=== PATIENT | male | born 1935 | race Caucasian/White ===

== ENCOUNTER 2018-05-02 08:20 | Day surgery (SDC) | payer OTHER, MEDICARE ==
[2018-05-02] MEDS ORDERED: LR 1,000 ML IV ONE (08:29)
--- NOTE | 2018-05-02 09:04 | CPEKG ---
Heart Rate: 63 RR Interval: 952 P-R Interval: 128 QRSD Interval: 154 QT Interval: 460 QTC Interval: 471 P [place]: 47 QRS [place]: 59 T Wave [place]: -41 EKG Severity - ABNORMAL ECG - EKG Impression: SINUS RHYTHM EKG Impression: RIGHT BUNDLE BRANCH BLOCK EKG Impression: ATRIAL PREMATURE COMPLEX Electronically Signed By: Vladimir Rider 02-May-2018 10:51:53
[2018-05-02] MEDS ORDERED: NALOXONE HCL 0.4 MG/ML INJ IVP PRN (09:49)
[2018-05-02] MEDS ORDERED: ACETAMINOPHEN 500 MG TAB PO PRN (09:49)
[2018-05-02] MEDS ORDERED: ONDANSETRON 4 MG/2 ML VIAL IVP PRN (09:49)
[2018-05-02] MEDS ORDERED: PROMETHAZINE HCL 25 MG/ML INJ IVP PRN (09:49)
[2018-05-02] MEDS ORDERED: LR 500 ML IV PRN (09:49)
--- NOTE | 2018-05-02 09:49 | PDANEPAE ---
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 balance issues - Cancer History Hx Cancer: Yes Cancer History Comment: skin - Congenital Disorder History Hx Congenital Disorders: No - GI History Hx Gastrointestinal Disorders: Yes Gastrointestinal History Comment: reflux,gerd,constipation - Other Health History Other Health History: stuffy nose. red areas after bumping. bilat catract sx. dental implants. anemia easily bruised. severe osteoporosis - Chronic Pain History Chronic Pain: Yes (back pain) - Surgical History Prior Surgeries: ASTHMA HTN APPY TONSILECTOMY. brain shunt for hydrocephalus. kyphoplasty x 3. wrist surgery ANE Review of Systems Review of Systems: - Exercise capacity METS (RN): 1 METS ANE Patient History - Allergies Allergies/Adverse Reactions: hydrocodone Allergy (Verified 05/02/18 08:32) Other-Enter Comments - Home Medications Home medications: home medication list seen and reviewed Home Medications: Albuterol [Proventil Neb] 06/21/15 [Last Taken 05/02/18] Aspirin EC [Aspirin EC 81 mg (OTC)] 06/21/15 [Last Taken 05/02/18] Esomeprazole Mag Trihydrate [Nexium] 06/21/15 [Last Taken 05/02/18] Fluticasone/Salmeter 250/50Mcg [Advair 250/50 (RX)] 06/21/15 [Last Taken ] Aricept 04/27/18 [Last Taken 05/02/18] Aspirin 81mg (*) 04/27/18 [Last Taken 05/02/18] Calcium 04/27/18 [Last Taken 05/02/18] Cholecalciferol (Vitamin D3) 04/27/18 [Last Taken 05/02/18] Duloxetine HCl 04/27/18 [Last Taken 05/02/18] Finasteride 04/27/18 [Last Taken 05/02/18] Furosemide 04/27/18 [Last Taken 3 Days Ago ~04/29/18] Iron 100-Vitamin C Tablet 04/27/18 [Last Taken 5 Days Ago ~04/27/18] Losartan Potassium 04/27/18 [Last Taken 05/02/18] Multivitamins 04/27/18 [Last Taken 05/02/18] Oxybutynin 04/27/18 [Last Taken 05/02/18] Potassium Cl 04/27/18 [Last Taken 04/28/18] Prolia 04/27/18 [Last Taken 05/02/18] Tamsulosin HCl 04/27/18 [Last Taken 05/02/18] - NPO status NPO Status: no food or drink >8 hours NPO Since - Liquids (Date): 05/02/18 NPO Since - Liquids (Time): 08:00 NPO Since - Solids (Date): 05/01/18 NPO Since - Solids (Time): 09:45 - Anes Hx Anes Hx: no prior problems - Smoking Hx Smoking Status: Former smoker - Family Anes Hx Family Hx Anesthesia Complications: NONE ANE Labs/Vital Signs - Vital Signs Blood Pressure: 157/93 Heart Rate: 55 Respiratory Rate: 16 O2 Sat (%): 93 Height: 170.18 cm Weight: 86.183 kg ANE Physical Exam - Airway Neck exam: FROM Mouth exam: normal dental/mouth exam - Pulmonary Pulmonary: no respiratory distress, no rales or rhonchi, clear to auscultation - Cardiovascular Cardiovascular: regular rate and rhythym, no murmur, rub, or gallop - ASA Status ASA Status: II ANE Anesthesia Plan Anesthesia Plan: GA with mask
[2018-05-02] MEDS ORDERED: PROPOFOL 200 MG/20 ML VIAL ONE ×2 (09:51→10:09)
--- NOTE | 2018-05-02 10:36 | GIREPORT ---
[facility] - Endoscopy Department Patient Name: Ariel Ignacio Procedure Date: 05/02/2018 9:44 AM Patient Type: Outpatient Attending MD/ ER Physician: Terrell Cartwright MD Procedure: Upper GI endoscopy Indications: Suspected upper gastrointestinal bleeding in patient with unexplained i galindo deficiency anemia Providers: Terrell Cartwright MD Medicines: General Anesthesia Complications: No immediate complications. Description of Procedure: After obtaining informed consent, the endoscope was passed under direct vision. Throughout the procedure, the patient's blood pressure, pulse, and oxygen saturations were monitored continuously. The Endoscope was intro duced through the mouth, and advanced to the third part of duodenum. The uppe r GI endoscopy was accomplished without difficulty. The patient tolerated th e procedure well. Findings: The examined esophagus was normal. A single 30 mm pedunculated polyp with no bleeding and no stigmata of r ecent bleeding was found in the gastric body. The polyp was removed with a co ld snare. Resection and retrieval were complete using a snare. Two hemosta tic clips were successfully placed. The gastric antrum was normal. Biopsies were taken with a cold forceps for histology. A large hiatal hernia was present. The examined duodenum was normal. Biopsies for histology were taken wit h a cold forceps for evaluation of celiac disease. Estimated Blood Loss: Estimated blood loss: none. Estimated blood loss: none. Post Op Diagnosis: - Normal esophagus. - A single large gastric polyp. Resected and retrieved. Clips were plac ed to assure hemostasis. - Normal antrum. Biopsied to rule out H. pylori. - Large hiatal hernia. - Normal examined duodenum. Biopsied to rule out celiac disease. Recommendation: - Perform a colonoscopy today. - Await pathology results. Attending Participation: I personally performed the entire procedure. Terrell Cartwright MD Terrell Cartwright MD 05/02/2018 10:36:22 AM This report has been signed electronicallyTerrell Cartwright MD Number of Addenda: 0 Note Initiated On: 05/02/2018 9:44 AM [email or web address]}
--- NOTE | 2018-05-02 10:40 | GIREPORT ---
[facility] Surgical Services - Endoscopy Department Patient Name: Ariel Ignacio Procedure Date: 05/02/2018 10:18 AM Patient Type: Outpatient Attending / ER Physician: Terrell Cartwright MD Procedure: Colonoscopy Indications: Unexplained iron deficiency anemia Providers: Terrell Cartwright MD Medicines: General Anesthesia Complications: No immediate complications. Description of Procedure: After obtaining informed consent, the scope was passed under direct vis ion. Throughout the procedure, the patient's blood pressure, pulse, and oxyg en saturations were monitored continuously. The Colonoscope was introduced through the anus and advanced to the sigmoid colon. The colonoscopy was technically difficult and complex due to inadequate bowel prep. Findings: A large amount of stool was found in the rectum and in the sigmoid colo n, precluding visualization. Estimated Blood Loss: Estimated blood loss: none. Post Op Diagnosis: - Stool in the rectum and in the sigmoid colon. - No specimens collected. Recommendation: - Discharge patient to home (with escort). - Clear liquid diet today. - Repeat bowel prep today. - Repeat colonoscopy tomorrow because the bowel preparation was poor. Attending Participation: I personally performed the entire procedure. Terrell Cartwright MD Terrell Cartwright MD 05/02/2018 10:39:27 AM This report has been signed [email or web address] Cartwright MD Number of Addenda: 0 Note Initiated On: 05/02/2018 10:18 AM Total Procedure Duration Time 0 hours 2 minutes 41 seconds [email or web address]}
--- NOTE | 2018-05-02 10:46 | PDGENHP ---
History and Physical - Chief Complaint JERAD - History of Present Illness JERAD. History Information - Allergies/Home Medication List Allergies/Adverse Reactions: hydrocodone Allergy (Verified 05/02/18 08:32) Other-Enter Comments Home Medications: Albuterol [Proventil Neb] 06/21/15 [Last Taken 05/02/18] Aspirin EC [Aspirin EC 81 mg (OTC)] 06/21/15 [Last Taken 05/02/18] Esomeprazole Mag Trihydrate [Nexium] 06/21/15 [Last Taken 05/02/18] Fluticasone/Salmeter 250/50Mcg [Advair 250/50 (RX)] 06/21/15 [Last Taken ] Aricept 04/27/18 [Last Taken 05/02/18] Aspirin 81mg (*) 04/27/18 [Last Taken 05/02/18] Calcium 04/27/18 [Last Taken 05/02/18] Cholecalciferol (Vitamin D3) 04/27/18 [Last Taken 05/02/18] Duloxetine HCl 04/27/18 [Last Taken 05/02/18] Finasteride 04/27/18 [Last Taken 05/02/18] Furosemide 04/27/18 [Last Taken 3 Days Ago ~04/29/18] Iron 100-Vitamin C Tablet 04/27/18 [Last Taken 5 Days Ago ~04/27/18] Losartan Potassium 04/27/18 [Last Taken 05/02/18] Multivitamins 04/27/18 [Last Taken 05/02/18] Oxybutynin 04/27/18 [Last Taken 05/02/18] Potassium Cl 04/27/18 [Last Taken 04/28/18] Prolia 04/27/18 [Last Taken 05/02/18] Tamsulosin HCl 04/27/18 [Last Taken 05/02/18] I have personally reviewed and updated: family history (-GI Ca or PUD), medical history, social history (_Tobacco or ETOH), surgical history (None) - Past Medical History COPD - Social History Smoking Status: Former smoker Review of Systems Review of Systems: ROS: 10pt was reviewed & negative except for what was stated in HPI & below Physical Exam Physical Exam: Temp Pulse Resp BP Pulse Ox 36.5 C 55 L 16 157/93 H 93 05/02/18 09:01 05/02/18 09:48 05/02/18 09:48 05/02/18 09:48 05/02/18 09:48 Constitutional: no apparent distress Eyes: PERRL Cardiovascular: regular rate and rhythym, no murmur, rub, or gallop Respiratory: no respiratory distress, no rales or rhonchi Gastrointestinal: normoactive bowel sounds, soft, non-tender abdomen, no palpable masses Skin: warm, normal color Neurologic: AAOx3 Assessment & Plan Assessment: JERAD COPD Plan: EGD/Colonoscopy
--- NOTE | 2018-05-02 10:58 | POSTANESTH ---
Post Anesthetic Evaluation Cardiovascular Status: Normal, Stable, Similar to Pre-Op Cond Respiratory Status: Normal, Stable, Similar to Pre-op Cond. Level of Consciousness/Mental Status: Can Participate in Eval, Moderately Sleepy Pain Control: Adequate, Prn Tx Ordered Nausea/Vomiting Control: Adequate, Prn Tx Ordered Complications Possibly Related to Anesthesia: None Noted
[2018-05-02 12:28] VITALS: BP 135/91
== END 2018-05-02 12:27 | disposition home or self-care (01) ==
LOC: FSGY 08:20
PROVIDERS: ATTEND Internal Medicine Gastroenterology
PROC: 0DB68ZX Excision of Stomach, Via Natural or Artificial Opening Endoscopic, Diagnostic (ICD-10-PCS; principal; 2018-05-02 09:45)
PROC: 0DJD8ZZ Inspection of Lower Intestinal Tract, Via Natural or Artificial Opening Endoscopic (ICD-10-PCS; principal; 2018-05-02 09:45)
PROC: 0DB98ZX Excision of Duodenum, Via Natural or Artificial Opening Endoscopic, Diagnostic (ICD-10-PCS; principal; 2018-05-02 09:45)
DX: K63.5 Polyp of colon (principal); D50.9 Iron deficiency anemia, unspecified; K44.9 Diaphragmatic hernia without obstruction or gangrene; J44.9 Chronic obstructive pulmonary disease, unspecified; Z87.891 Personal history of nicotine dependence
CPT/HCPCS: J2704

== ENCOUNTER 2018-05-03 09:06 | Day surgery (SDC) | payer OTHER, MEDICARE ==
[2018-05-03] MEDS ORDERED: LR 500 ML IV PRN (10:15)
[2018-05-03] MEDS ORDERED: ALBUTEROL 3 ML DEYVIAL IH PRN (10:15)
[2018-05-03] MEDS ORDERED: ONDANSETRON 4 MG/2 ML VIAL IVP PRN (10:15)
[2018-05-03] MEDS ORDERED: ACETAMINOPHEN 500 MG TAB PO PRN (10:15)
[2018-05-03] MEDS ORDERED: NALOXONE HCL 0.4 MG/ML INJ IVP PRN (10:15)
--- NOTE | 2018-05-03 10:18 | PDANEPAE ---
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 balance issues - Cancer History Hx Cancer: Yes Cancer History Comment: skin - Congenital Disorder History Hx Congenital Disorders: No - GI History Hx Gastrointestinal Disorders: Yes Gastrointestinal History Comment: reflux,gerd,constipation - Other Health History Other Health History: stuffy nose. red areas after bumping. bilat catract sx. dental implants. anemia easily bruised. severe osteoporosis - Chronic Pain History Chronic Pain: Yes (back pain) - Surgical History Prior Surgeries: ASTHMA HTN APPY TONSILECTOMY. brain shunt for hydrocephalus. kyphoplasty x 3. wrist surgery ANE Review of Systems Review of Systems: - Exercise capacity METS (RN): 1 METS ANE Patient History - Allergies Allergies/Adverse Reactions: hydrocodone Allergy (Verified 05/02/18 08:32) Other-Enter Comments - Home Medications Home Medications: Albuterol [Proventil Neb] 06/21/15 [Last Taken 05/02/18] Aspirin EC [Aspirin EC 81 mg (OTC)] 06/21/15 [Last Taken 05/02/18] Esomeprazole Mag Trihydrate [Nexium] 06/21/15 [Last Taken 05/02/18] Fluticasone/Salmeter 250/50Mcg [Advair 250/50 (RX)] 06/21/15 [Last Taken ] Aricept 04/27/18 [Last Taken 05/02/18] Aspirin 81mg (*) 04/27/18 [Last Taken 05/02/18] Calcium 04/27/18 [Last Taken 05/02/18] Cholecalciferol (Vitamin D3) 04/27/18 [Last Taken 05/02/18] Duloxetine HCl 04/27/18 [Last Taken 05/02/18] Finasteride 04/27/18 [Last Taken 05/02/18] Furosemide 04/27/18 [Last Taken 3 Days Ago ~04/29/18] Iron 100-Vitamin C Tablet 04/27/18 [Last Taken 5 Days Ago ~04/27/18] Losartan Potassium 04/27/18 [Last Taken 05/02/18] Multivitamins 04/27/18 [Last Taken 05/02/18] Oxybutynin 04/27/18 [Last Taken 05/02/18] Potassium Cl 04/27/18 [Last Taken 04/28/18] Prolia 04/27/18 [Last Taken 05/02/18] Tamsulosin HCl 04/27/18 [Last Taken 05/02/18] - NPO status NPO Since - Liquids (Date): 05/02/18 NPO Since - Solids (Date): 04/30/18 - Smoking Hx Smoking Status: Former smoker - Family Anes Hx Family Hx Anesthesia Complications: NONE ANE Labs/Vital Signs - Labs Result Diagrams: 05/03/18 09:30 - Vital Signs Blood Pressure: 165/86 Heart Rate: 58 Respiratory Rate: 16 O2 Sat (%): 93 Height: 170.18 cm Weight: 86.183 kg ANE Physical Exam - Airway Neck exam: FROM Mallampati Score: Class 2 Mouth exam: normal dental/mouth exam - Pulmonary Pulmonary: clear to auscultation - Cardiovascular Cardiovascular: regular rate and rhythym - ASA Status ASA Status: III ANE Anesthesia Plan Anesthesia Plan: GA with mask
[2018-05-03] MEDS ORDERED: PROPOFOL/EMULSION 500 MG/50 ML BOTTLE IV ONE (10:24)
--- NOTE | 2018-05-03 10:38 | PDHPUP ---
History & Physical Update H&P update statement: This history and physical update is based on an assessment of the patient which was completed after admission or registration (within 24 hours), but prior to the surgery/procedure. Patient had inadequate bowel prep yesterday for colonoscopy. Pre-prepped last night and here for colonoscopy to evaluation JERAD. H&P update: H&P reviewed & patient examined (No change in H&P) H&P changes: No change in H&P.
--- NOTE | 2018-05-03 11:18 | GIREPORT ---
[facility] Surgical Services - Endoscopy Department Patient Name: Ariel Ignacio Procedure Date: 05/03/2018 10:28 AM Patient Type: Inpatient Attending MD/ ER Physician: Terrell Cartwright MD Procedure: Colonoscopy Indications: Unexplained iron deficiency anemia Providers: Terrell Cartwright MD Medicines: General Anesthesia Complications: No immediate complications. Description of Procedure: After obtaining informed consent, the scope was passed under direct vis ion. Throughout the procedure, the patient's blood pressure, pulse, and oxyg en saturations were monitored continuously. The Colonoscope with irrigatio n channel was introduced through the anus and advanced to the cecum, identified by appendiceal orifice and ileocecal valve. The colonoscopy was performed without difficulty. The patient tolerated the procedure well. The quality of the bowel preparation was adequate. Findings: A 5 mm polyp was found in the cecum. The polyp was sessile. The polyp w as removed with a cold biopsy forceps. Resection and retrieval were comple te. The transverse colon, ascending colon, appendiceal orifice and ileoceca l valve appeared normal. Multiple diverticula were found in the sigmoid colon and descending col on. The rectum appeared normal. The perianal and digital rectal examinations were normal. Estimated Blood Loss: Estimated blood loss: none. Post Op Diagnosis: - One 5 mm polyp in the cecum, removed with a cold biopsy forceps. Rese cted and retrieved. - The transverse colon, ascending colon, appendiceal orifice and ileoce elizabeth valve are normal. - Diverticulosis in the sigmoid colon and in the descending colon. - The rectum is normal. Recommendation: - Discharge patient to home (with escort). - Patient has a contact number available for emergencies. The signs and symptoms of potential delayed complications were discussed with the pat ient. Return to normal activities tomorrow. Written discharge instructions we re provided to the patient. - Advance diet as tolerated today. - Continue present medications. - Await pathology results. - Repeat colonoscopy is not recommended due to current age (80 years or older) for surveillance. Attending Participation: I personally performed the entire procedure. Terrell Cartwright MD Terrell Cartwright MD 05/03/2018 11:18:27 AM This report has been signed electronicallyTerrell Cartwright MD Number of Addenda: 0 Note Initiated On: 05/03/2018 10:28 AM Total Procedure Duration Time 0 hours 26 minutes 17 seconds [email or web address]
--- NOTE | 2018-05-03 11:18 | POSTANESTH ---
Post Anesthetic Evaluation Cardiovascular Status: Normal, Stable Respiratory Status: Normal, Stable Level of Consciousness/Mental Status: Can Participate in Eval, Mildly Sleepy, Arousable Pain Control: Adequate, Prn Tx Ordered Nausea/Vomiting Control: Adequate, Prn Tx Ordered Complications Possibly Related to Anesthesia: None Noted
[2018-05-03 13:07] VITALS: BP 136/86
== END 2018-05-03 13:29 | disposition home or self-care (01) ==
LOC: FSGY 09:06
PROVIDERS: ATTEND Internal Medicine Gastroenterology
PROC: 0DBH8ZX Excision of Cecum, Via Natural or Artificial Opening Endoscopic, Diagnostic (ICD-10-PCS; principal; 2018-05-03 10:30)
DX: D50.9 Iron deficiency anemia, unspecified (principal); K63.5 Polyp of colon; K57.30 Diverticulosis of large intestine without perforation or abscess without bleeding; I10 Essential (primary) hypertension; J44.9 Chronic obstructive pulmonary disease, unspecified; K21.9 Gastro-esophageal reflux disease without esophagitis; K59.00 Constipation, unspecified; Z87.891 Personal history of nicotine dependence
CPT/HCPCS: J2704

== ENCOUNTER → 2018-06-30 | Outpatient (CLI) | payer OTHER, MEDICARE | LOC: FIMAGING 14:57 | PROVIDERS: ATTEND Allergy & Immunology Allergy | DX: J98.11 Atelectasis (principal); R91.8 Other nonspecific abnormal finding of lung field; I28.8 Other diseases of pulmonary vessels; K44.9 Diaphragmatic hernia without obstruction or gangrene ==

== ENCOUNTER 2019-04-09 20:21 | Inpatient (IN) | payer OTHER, MEDICARE | END 2019-04-17 15:21 | LOC: F3N 04-13 11:19 → F2N 22:37 ==